=== PATIENT | female | born 1975 | race Two or more races ===

== ENCOUNTER 2016-11-22 02:29 | Emergency (ER) | payer OTHER ==
--- NOTE | 2016-11-22 02:41 | EDPHY ---
H & P Stated Complaint: painful urination HPI/ROS: HPI CHIEF COMPLAINT: Dysuria x3 hours HISTORY OF PRESENT ILLNESS: This patient is a pleasant 41-year-old female she presents to the emergency room dysuria x3 hours. She is English-speaking only. A per diem interpreter was used for history and review of systems. Patient reports she woke up with dysuria. Burning when she urinates. Denies back pain , abdominal pain, fever vomiting or nausea. Past Medical History: Recurrent urinary tract infection. Past Surgical History: Denies recent surgery Social History: Denies daily use of drugs alcohol tobacco products. Family History: Noncontributory ROS REVIEW OF SYSTEMS: A comprehensive 10 point review of systems is otherwise negative aside from elements mentioned in the history of present illness. Exam Constitutional appears well nontoxic, triage nursing summary reviewed, vital signs reviewed, awake/alert. Eyes normal conjunctivae and sclera, EOMI, PERRLA. HENT normal inspection, atraumatic, moist mucus membranes, no epistaxis, neck supple/ no meningismus, no raccoon eyes. Respiratory clear to auscultation bilaterally, normal breath sounds, no respiratory distress, no wheezing. Cardiovascular rate normal, regular rhythm, no murmur, no edema, distal pulses normal. Gastrointestinal soft, non-tender, no rebound, no guarding, normal bowel sounds, no distension, no pulsatile mass. Genitourinary no CVA tenderness. Musculoskeletal no midline vertebral tenderness, full range of motion, no calf swelling, no tenderness of extremities, no meningismus, good pulses, neurovascularly intact. Skin pink, warm, & dry, no rash, skin atraumatic. Neurologic awake, alert and oriented x 3, AAOx3, moves all 4 extremities equally, motor intact, sensory intact, CN II-XII intact, normal cerebellar, normal vision, normal speech. Psychiatric normal mood/affect. Heme/Lymph/Immune no lymphadenopathy. Differential Diagnosis: Includes but is not limited to in a particular order urinary tract infection, cystitis, pyelonephritis Medical Decision Making: Plan for this patient check UA. Re-evaluation: [id number]: Urinalysis reviewed. Nitrite positive UTI. Urine culture sent. 1st dose of Keflex given here in emergency room. As well as pyridium. Patient updated. Additionally patient understands return emergency room there is worsening symptoms questions or concerns includes high fever, vomiting, back pain or worsening urinary symptoms. Source: Patient - Personal History Current Tetanus/Diphtheria Vaccine: Yes Tetanus Vaccine Date: < 10 years - Medical/Surgical History Hx Asthma: No Hx Chronic Respiratory Disease: No Hx Diabetes: No Hx Cardiac Disease: No Hx Renal Disease: No Hx Cirrhosis: No Hx Alcoholism: No Hx HIV/AIDS: No Hx Splenectomy or Spleen Trauma: No Other PMH: PMHx: UTIs. PSHx: - Social History Smoking Status: Never smoked Constitutional: Initial Vital Signs Temperature (C) 36.6 C 11/22/16 02:32 Heart Rate 82 11/22/16 02:32 Respiratory Rate 16 11/22/16 02:32 Blood Pressure 113/74 11/22/16 02:32 O2 Sat (%) 99 11/22/16 02:32 O2 Delivery Mode Room Air Allergies/Adverse Reactions: No Known Allergies Allergy (Verified 11/23/15 19:43) Home Medications: Medication Instructions Recorded Cephalexin [Keflex] 500 mg PO Q6H #28 cap 11/22/16 Phenazopyridine HCl [Pyridium] 200 mg PO TID #15 tab 11/22/16 Medical Decision Making - Data Points Laboratory Results: 11/22/16 02:45 Urine Color KYM Urine Appearance CLEAR Urine pH 5.0 (5.0-7.5) Ur Specific [place] 1.012 (1.002-1.030) Urine Protein 1+ H (NEGATIVE) Urine Ketones NEGATIVE (NEGATIVE) Urine Blood 3+ H (NEGATIVE) Urine Nitrate POSITIVE H (NEGATIVE) Urine Bilirubin NEGATIVE (NEGATIVE) Urine Urobilinogen 2.0 EU H EU (0.2-1.0) Ur Leukocyte Esterase 2+ H (NEGATIVE) Urine RBC 50-182 /hpf H /hpf (0-3) Urine WBC 50-182 /hpf H /hpf (0-3) Ur Epithelial Cells TRACE /lpf /lpf (NONE-1+) Urine Bacteria 2+ /hpf H /hpf (NONE SEEN) Urine Mucus TRACE /lpf /lpf (NONE-1+) Urine Glucose NEGATIVE (NEGATIVE) Medications Given: Discontinued Medications Phenazopyridine HCl (Pyridium) 200 mg PO EDNOW ONE Stop: 11/22/16 02:55 Last Admin: 11/22/16 03:00 Dose: 200 mg Departure - Departure Disposition: Home, Routine, Self-Care Clinical Impression: Urinary tract infection Qualifiers: Urinary tract infection type: acute cystitis Hematuria presence: with hematuria Qualified Code(s): N30.01 - Acute cystitis with hematuria Condition: Good Instructions: Urinary Tract Infection in Women (ED) Additional Instructions: 1. Drink lots of fluids stay well-hydrated. 2. Return emergency room if you have worsening symptoms questions or concerns. 3. Return if he develops worsening pain fever vomiting Referrals: [facility] [Other] - As per Instructions Prescriptions: Cephalexin [Keflex] 500 mg PO Q6H #28 cap Phenazopyridine HCl [Pyridium] 200 mg PO TID #15 tab
[2016-11-22] MEDS ORDERED: PHENAZOPYRIDINE HCL 200 MG TAB PO ONE (02:54)
[2016-11-22 03:16] LABS: COLOR AMBER; LEUKOCYTE ESTERASE,URINE 2+ (NEGATIVE); NITRITE,URINE POSITIVE (NEGATIVE)
[2016-11-22 03:32] LABS: BACTERIA 2+ /hpf (NONE SEEN); MUCUS TRACE /lpf (NONE-1+); RBC,URINE 50-182 /hpf (0-3); WBC,URINE 50-182 /hpf (0-3)
[2016-11-22] MEDS ORDERED: CEPHALEXIN 500 MG CAP PO ONE (03:59)
[2016-11-22] MEDS ORDERED: CEPHALEXIN 500MG PREPACK#4 BTL TAKEHOME ONE (03:59)
[2016-11-22 04:12] VITALS: RESP 16
[2016-11-22 04:27] VITALS: BP 116/73; PULSE 81; TEMP 97.7; O2SAT 94
== END 2016-11-22 04:26 | disposition home or self-care (01) ==
DX: N30.01 Acute cystitis with hematuria (principal); B96.89 Other specified bacterial agents as the cause of diseases classified elsewhere

== ENCOUNTER 2018-04-29 16:17 | Emergency (ER) | payer OTHER ==
[2018-04-29] MEDS ORDERED: NS 500 ML IV ONE (16:32)
[2018-04-29 17:01] LABS: PLATELET COUNT 202 10^3/uL (150-400)
--- NOTE | 2018-04-29 17:09 | EDPHY ---
H & P Time Seen by Provider: 04/29/18 16:32 HPI/ROS: HPI Chest pain. 42-year-old female by private vehicle with her and son. She presents with complaint of chest pain, substernal sharp in nature for the last 2 days, intermittent in nature but more constant today. She has no history of coronary artery disease or thromboembolic disease. Her father has a history of coronary artery disease. Otherwise she denies smoking. No history of hypertension, hyperlipidemia or diabetes. She states that she has had some shortness of breath associated with the pain but no cough. ROS: Constitutional: No fever, no chills. No weakness. Eyes: No discharge. No changes in vision. ENT: No sore throat. No nasal congestion or rhinorrhea. Respiratory: No cough. No shortness of breath. Cardiac: No chest pain, no palpitations. Gastrointestinal: No abdominal pain, no vomiting, no diarrhea. Genitourinary: No hematuria. No dysuria or increased frequency with urination. Musculoskeletal: No back pain. No neck pain. No myalgias or arthralgias. Skin: No rashes. Neurological: No headache. No focal weakness or altered sensation. Past medical history: Urinary tract infection, . Social history: Nonsmoker. No alcohol. Here with and child. Physical Exam: General Appearance: Alert, she does not appear to be in distress. This patient is responding to questions appropriately and in full sentences. This patient appears well-hydrated and well-nourished. Eyes: Pupils equal and round no pallor or injection. No lid edema, erythema or injection. Respiratory: There are no retractions, lungs are clear to auscultation with good air movement bilaterally. Cardiovascular: Regular rate and rhythm. No murmur appreciated. No rash on examination of her chest wall. No contusions. The pain is reproducible and exacerbated on palpation of the mid sternum. Gastrointestinal: Abdomen is soft and nontender, no masses, bowel sounds normal. No focal tenderness at McBurney's point. No Portillo sign. Neurological: Motor sensory function is grossly intact. Cranial nerves are normal. Gait is normal. Skin: Warm and dry, no rashes. Musculoskeletal: Neck is supple and nontender. Extremities are symmetrical. All joints range without pain or impingement. Psychiatric: No agitation. No depression. Database: EKG: EKG time is 4:43 p.m.; EKG shows a narrow complex normal sinus rhythm with a ventricular rate of 93. The CA, QRS, QT intervals are within normal limits. There are no ST-T wave changes indicative of ischemic or injury pattern. No evidence of right heart strain. Interpreted by me. Imaging: Chest x-ray PA and lateral; the cardiac mediastinal silhouette is unremarkable. No evidence of infiltrate or pneumothorax. No acute cardiopulmonary disease process noted. Interpreted by me. Procedures: Emergency department course: Triage vital signs reviewed and are normal. An IV was placed. She was placed on a bus monitor. She was started on IV normal saline with 500 cc to be given over the next hour. EKG obtained and reviewed by myself. Heart score equals 1. 5:45 p.m., the patient was re-evaluated. She has received 30 mg of IV Toradol. My differential at this point consists of pericarditis verses costal chondritis or a musculoskeletal chest wall etiology of her pain. She is feeling better at this time. She thinks that the medicine has helped her. She is low risk by heart score. She does feel comfortable going home with her . I will have her follow up with her primary care physician as well as Cardiology. Return to emergency department precautions were thoroughly reviewed with her and her with the recreation therapy director present. All of their questions were answered. I will also prescribe her ibuprofen to be taken over the next couple days starting tomorrow morning. She is in agreement with this plan. She was discharged home in good condition with her . Differential Diagnosis: The differential diagnosis on this patient includes but is not limited to myocarditis, pericarditis, musculoskeletal pain. Acute coronary syndrome, pulmonary embolism unlikely. This represents a partial list of diagnoses considered. These considerations are based on history, physical exam, past history, reassessment and diagnostic testing. Smoking Status: Never smoked Constitutional: Initial Vital Signs Temperature (C) 36.6 C 04/29/18 16:26 Heart Rate 94 04/29/18 16:26 Respiratory Rate 16 04/29/18 16:26 Blood Pressure 104/83 H 04/29/18 16:26 O2 Sat (%) 98 04/29/18 16:26 O2 Delivery Mode Room Air Allergies/Adverse Reactions: No Known Allergies Allergy (Verified 04/29/18 16:26) Home Medications: Medication Instructions Recorded Cephalexin [Keflex] 500 mg PO Q6H #28 cap 11/22/16 Phenazopyridine HCl [Pyridium] 200 mg PO TID #15 tab 11/22/16 Medical Decision Making - Diagnostics Imaging Results: Imaging Impressions Chest X-Ray 04/29/18 16:33 Impression: Normal. - Data Points Laboratory Results: Laboratory Results 04/29/18 16:46 04/29/18 16:46 04/29/18 04/29/18 04/29/18 16:47 16:46 16:46 WBC RBC Hgb Hct MCV MCH MCHC RDW Plt Count MPV Neut % (Auto) Lymph % (Auto) [place] % (Auto) Eos % (Auto) Baso % (Auto) Nucleat RBC Rel Count Absolute Neuts (auto) Absolute Lymphs (auto) Absolute Monos (auto) Absolute Eos (auto) Absolute Basos (auto) Absolute Nucleated RBC Immature Gran % Immature Gran # D-Dimer 0.29 ug/mLFEU ug/mLFEU (0.00-0.50) Sodium Potassium Chloride Carbon Dioxide Anion Gap BUN Creatinine Estimated GFR Glucose Calcium POC Troponin I 0.00 ng/mL ng/mL (0.00-0.08) Beta HCG, Qual NEGATIVE 04/29/18 04/29/18 16:46 16:46 WBC 9.76 10^3/uL H 10^3/uL (3.80-9.50) RBC 4.91 10^6/uL 10^6/uL (4.18-5.33) Hgb 14.7 g/dL g/dL (12.6-16.3) Hct 41.2 % % (38.0-47.0) MCV 83.9 fL fL (81.5-99.8) MCH 29.9 pg pg (27.9-34.1) MCHC 35.7 g/dL g/dL (32.4-36.7) RDW 12.3 % % (11.5-15.2) Plt Count 202 10^3/uL 10^3/uL (150-400) MPV 10.4 fL fL (8.7-11.7) Neut % (Auto) 58.7 % % (39.3-74.2) Lymph % (Auto) 35.5 % % (15.0-45.0) [place] % (Auto) 4.6 % % (4.5-13.0) Eos % (Auto) 0.4 % L % (0.6-7.6) Baso % (Auto) 0.5 % % (0.3-1.7) Nucleat RBC Rel Count 0.0 % % (0.0-0.2) Absolute Neuts (auto) 5.73 10^3/uL 10^3/uL (1.70-6.50) Absolute Lymphs (auto) 3.46 10^3/uL H 10^3/uL (1.00-3.00) Absolute Monos (auto) 0.45 10^3/uL 10^3/uL (0.30-0.80) Absolute Eos (auto) 0.04 10^3/uL 10^3/uL (0.03-0.40) Absolute Basos (auto) 0.05 10^3/uL 10^3/uL (0.02-0.10) Absolute Nucleated RBC 0.00 10^3/uL 10^3/uL (0-0.01) Immature Gran % 0.3 % % (0.0-1.1) Immature Gran # 0.03 10^3/uL 10^3/uL (0.00-0.10) D-Dimer Sodium 137 mEq/L mEq/L (135-145) Potassium 3.6 mEq/L mEq/L (3.5-5.2) Chloride 106 mEq/L mEq/L (97-110) Carbon Dioxide 22 mEq/l mEq/l (22-31) Anion Gap 9 mEq/L mEq/L (6-14) BUN 9 mg/dL mg/dL (7-23) Creatinine 0.6 mg/dL mg/dL (0.6-1.0) Estimated GFR > 60 Glucose 97 mg/dL mg/dL (70-100) Calcium 9.6 mg/dL mg/dL (8.5-10.4) POC Troponin I Beta HCG, Qual Medications Given: Discontinued Medications Sodium Chloride (Ns) 500 mls @ 1,000 mls/hr IV EDNOW ONE PRN Reason: Protocol Stop: 04/29/18 17:01 Last Admin: 04/29/18 17:00 Dose: 500 mls Ketorolac Tromethamine (Toradol) 30 mg IVP EDNOW ONE Stop: 04/29/18 17:27 Last Admin: 04/29/18 17:34 Dose: 30 mg Point of Care Test Results: Chemistry 04/29/18 16:47 POC Troponin I 0.00 ng/mL ng/mL (0.00-0.08) Departure - Departure Disposition: Home, Routine, Self-Care Clinical Impression: Chest pain Condition: Good Instructions: Chest Pain (ED) Additional Instructions: Read and follow provided instructions. Follow-up with your primary care physician within 1-2 days for re-evaluation. I have also provided you with a referral to our cardiology group. Call their office tomorrow morning for follow-up in their office within the next 3 days. Explained this is for an emergency department follow-up. Starting tomorrow morning you can take ibuprofen. Ibuprofen dosin mg every 6 hours with meals for the next 3 days only. Take only as needed for pain. Return to the emergency department for worsening pain, shortness of breath or other serious concerns as discussed. Referrals: [facility],. [Primary Care Provider] - As per Instructions [facility] [Provider Group] - As per Instructions
[2018-04-29] MEDS ORDERED: KETOROLAC 30 MG/1 ML SDV IVP ONE (17:26)
[2018-04-29 18:13] VITALS: BP 103/58
--- NOTE | 2018-04-30 22:40 | CPEKG ---
Test Reason : OPEN Blood Pressure : / mmHG Vent. Rate : 093 BPM Atrial Rate : 093 BPM P-R Int : 152 ms QRS Dur : 080 ms QT Int : 360 ms P-R-T Axes : 050 013 030 degrees QTc Int : 448 ms Sinus rhythm Confirmed by Venancio Hodgson ([id number] on 04/30/2018 10:39:37 PM Referred By: Venancio Hodgson Confirmed By:Venancio Hodgson
== END 2018-04-29 18:12 | disposition home or self-care (01) ==
DX: R07.9 Chest pain, unspecified (principal); Z82.49 Family history of ischemic heart disease and other diseases of the circulatory system
CPT/HCPCS: 84484-ER; 96374; J1885